=== PATIENT | female | born 1940 | race Caucasian/White ===

== ENCOUNTER 2017-10-31 11:49 | Outpatient (CLI) | payer MEDICARE ==
--- NOTE | 2017-10-31 15:50 | PET ---
PET CT EVALUATION 10/31/17 INDICATION: Solitary pulmonary nodule. TECHNIQUE: PET CT images were obtained from the skull to mid thigh following introduction of IV F18 FDG. 11.2 mi llicuries of F18 FDG was utilized fro the exam. CT images were obtained for attenuation correction pu rposes only. No comparisons are available. BIODISTRIBUTION: The biodistribution for the examination appears acceptable. HEAD AND NECK: No hypermetabolic lymphadenopathy or soft tissue mass is identified. THORAX: There is a spiculated pulmonary nodule within the right upper lobe measuring 1.27 cm with maximum SUV uptake of 3.42 and mean value of 2.94. No additional hypermetabolic pulmonary nodule or pleural effu stevie is evident. There is severe emphysema. No hypermetabolic lymphadenopathy is evident. ABDOMEN AND PELVIS: No hypermetabolic lymphadenopathy or mass is identified. No hypermetabolic ascites is noted. SKIN AND OSSEOUS STRUCTURES: No hypermetabolic skin or osseous lesion is identified. IMPRESSION: Abnormal PET CT. 1. Hypermetabolic spiculated nodule within the right upper lobe apical segment is highly suspici ous for malignancy. 2. No evidence of hypermetabolic metastatic disease. No hypermetabolic regional lymphadenopathy is noted within the thorax. POS: [facility]
== END 2017-10-31 11:50 | disposition home or self-care (01) ==
LOC: PET 11:49
PROVIDERS: ATTEND Internal Medicine Pulmonary Disease
DX: R91.1 Solitary pulmonary nodule (principal); R93.8 Abnormal findings on diagnostic imaging of other specified body structures; Z87.891 Personal history of nicotine dependence
CPT/HCPCS: 78815; A9552

== ENCOUNTER 2018-04-09 10:02 | Outpatient (CLI) | payer MEDICARE ==
--- NOTE | 2018-04-09 13:02 | CT ---
CT CHEST WITH IV CONTRAST: HISTORY: Lung cancer. Restaging. COMPARISON: PET CT from 10/31/2017. FINDINGS: The spiculated right upper lobe mass is similar in appearance to the CT images from the PET scan. It is estimated at 1 cm in oblique diameter. No new parenchymal lung masses are evident. The lungs re main hyperinflated with scattered small bullae. Prominent calcification throughout the arterial stru ctures. A small amount of pericardial fluid is now evident within a reflection just anterior to the left mainstem bronchus. This is favored to not be an enlarged lymph node. Nonspecific lymph nodes a re scattered about the mediastinum. A right axillary lymph node is slightly larger than on the prior PET CT, but does not appear pathologically enlarged. Within the partially visualized upper abdomen, the adrenal glands have a normal appearance. IMPRESSION: 1. Stable CT appearance of the spiculated right upper lobe lung mass. No new neoplastic abnormaliti es are evident. 2. Atherosclerosis. POS: [facility]
[2018-04-09] MEDS ORDERED: ISOVUE-370 76%-LOCM 1 ML ONE (16:28)
== END 2018-04-09 10:03 | disposition home or self-care (01) ==
LOC: BICCT 10:02
PROVIDERS: ATTEND Radiology Radiation Oncology
DX: C34.11 Malignant neoplasm of upper lobe, right bronchus or lung (principal); I70.90 Unspecified atherosclerosis
CPT/HCPCS: 71260; 82565

== ENCOUNTER 2018-10-14 10:28 | Outpatient (CLI) | payer MEDICARE ==
[~2018-10-14 10:28] MED LIST: Iopamidol 370 76% 100 ML VIAL ONE
--- NOTE | 2018-10-14 11:53 | CT ---
EXAM: CT Chest W Con PROVIDED CLINICAL HISTORY: Right upper lobe lung cancer. Patient is post radiation. This examination is for restaging. COMPARISON: PET/CT examination on 10/31/[address] thorax on 04/09/2018 FINDINGS: Previously described spiculated right upper lobe nodular density is again seen and unchanged in size or appearance when compared to the prior exams. This measures approximately 8 mm. There is adjacent minimal pleural thickening present as well. No new discrete pulmonary nodule or mass is seen. Linear densities are again seen in the right middle lobe and lingula which may represent mild scarring. Emphysematous changes are again seen in the lungs bilaterally. Dense vascular calcifications are again seen in the coronary arteries as well as involving the thorac ic aorta and limited visualized upper abdominal aorta. A dual-lead left subclavian cardiac pacemaking device remains in place. No evidence of lymphadenopathy. Visualized upper abdomen demonstrates a normal CT appearance with colonic diverticula partially seen within the region of the hepatic and splenic flexures. No lytic or sclerotic osseous lesions are identified. IMPRESSION: 1. Stable appearance of the spiculated right upper lobe nodule. No new pulmonary nodule is seen. 2. Remainder of the chest is also stable from prior exam.
== END 2018-10-14 10:29 | disposition home or self-care (01) ==
LOC: BICCT 10:28
PROVIDERS: ATTEND Radiology Radiation Oncology
DX: C34.11 Malignant neoplasm of upper lobe, right bronchus or lung (principal); R91.1 Solitary pulmonary nodule
CPT/HCPCS: 71260; 82565; Q9967

== ENCOUNTER 2019-04-14 10:53 | Outpatient (CLI) | payer MEDICARE ==
--- NOTE | 2019-04-14 11:35 | CT ---
EXAM: CT of the chest with contrast HISTORY: Right upper lobe lung cancer status post radiation therapy. COMPARISON: 10/14/2018 TECHNIQUE: Multiple contiguous axial images were obtained in a CT the chest with contrast. Coronal an d sagittal reformats were performed. FINDINGS: HEART: Normal in size without focal cardiac abnormality. There is a pacemaker with its leads in the r ight atrium and ventricle. MEDIASTINUM: No hilar or mediastinal lymphadenopathy. LUNGS: There is a 6 mm spiculated nodule in the right upper lobe. Adjacent pleural thickening is seen . Emphysematous changes are seen in the lung apices. PLEURAL SPACE: No pneumothorax or pleural effusion. CHEST WALL SOFT TISSUES: Unremarkable OSSEOUS STRUCTURES: Degenerative changes in the spine. VISUALIZED SUBDIAPHRAGMATIC STRUCTURES: Unremarkable IMPRESSION: Slightly smaller right upper lobe nodule.
[2019-04-14] MEDS ORDERED: Iopamidol-370 76% 500 ML 1 ML ONE (13:22)
== END 2019-04-14 10:54 | disposition home or self-care (01) ==
LOC: BICCT 10:53
PROVIDERS: ATTEND Radiology Radiation Oncology
DX: C34.11 Malignant neoplasm of upper lobe, right bronchus or lung (principal); R91.1 Solitary pulmonary nodule
CPT/HCPCS: 71260; 82565; Q9967

== ENCOUNTER 2020-11-09 14:01 | Outpatient (CLI) | payer MEDICARE ==
[~2020-11-09 14:01] MED LIST changes: -Iopamidol 370 76% 100 ML VIAL ONE; +Iopamidol-370 76% 500 ML 1 ML ONE
== END 2020-11-09 14:02 | disposition home or self-care (01) ==
LOC: BICCT 14:01
PROVIDERS: ATTEND Radiology Radiation Oncology
DX: C34.11 Malignant neoplasm of upper lobe, right bronchus or lung (principal); R91.1 Solitary pulmonary nodule
CPT/HCPCS: 71260; 82565; Q9967